=== PATIENT | male | born 1995 | race Caucasian/White ===

== ENCOUNTER 2016-05-24 20:07 | Emergency (ER) | payer SELFPAY ==
[~2016-05-24 20:07] MED LIST: NO HOME MEDICATIONS
[2016-05-24 23:12] VITALS: BP 118/84
== END 2016-05-24 23:12 | disposition home or self-care (01) ==
LOC: ED 20:07
DX: R51 Headache (principal); J00 Acute nasopharyngitis [common cold]; R30.0 Dysuria; F17.210 Nicotine dependence, cigarettes, uncomplicated; Z20.89 Contact with and (suspected) exposure to other communicable diseases